=== PATIENT | female | born 1990 | race Caucasian/White ===

== ENCOUNTER → 2021-09-04 | Outpatient (CLI) | payer MEDICAID ==
[~2021-09-04] MED LIST: CHOL4PAC16 PO; DOCU-239 PO; IBUP-1780 PO; LAMO100T69 PO; LIDOCAINE 1% INJ 20 ML 20 ML VIAL INJ ONE; NORG1TAB14 PO; OMEP20CA18 PO; OXYC1TAB87 PO; QUET25TA PO; TRAZ-227 PO; VENL150C PO; VENL37.52 PO
--- NOTE | 2021-09-04 11:45 | Diagnostic Imaging Report ---
INDICATION: Left breast lesions. PROCEDURE: The patient presents for ultrasound-guided biopsy. CORRELATION is made with prior left breast ultrasound from 04/27/2021. The patient presented to the department to undergo ultrasound-guided biopsy of an area of heterogeneity at the 2:00 location, 3 cm from the nipple. This area was evaluated and no underlying abnormality is identified on today's study. In addition, the patient states she no longer has any palpable abnormality. Therefore, tissue sampling was not performed. The small areas of nodularity at the 3:00 location of the left breast, 8 cm from the nipple, were reevaluated. One nodule measures approximately 8 mm x 5 mm and another nodule measures 6 mm x 5 mm. These appear stable when compared with prior exam. No new mass is detected. IMPRESSION: BI-RADS 3 Area of heterogeneity at the 2:00 location of the left breast is no longer visualized. Therefore, ultrasound guided biopsy was not performed. Subcentimeter nodules at the 3:00 location, asymmetric from the nipple, stable when compared with the April study. A 6 month follow-up with repeat exam in February 2022 would be recommended to show continued stability of the nodules at the 3:00 location. ACR BI-RADS Category 3: Probably benign findings. Result letter will be mailed to the patient. Note: At least 10% of breast cancer is not imaged by mammography. Dictated by: Dictated on workstation # [id number]
== END ==
LOC: RAD 09:00
PROVIDERS: ATTEND Surgery
DX: N63.25 Unspecified lump in the left breast, overlapping quadrants (principal)
CPT/HCPCS: 76642